=== PATIENT | male | born 1985 | race Caucasian/White ===

== ENCOUNTER 2019-09-13 12:41 | Emergency (ER) | payer OTHER ==
[~2019-09-13] VITALS: Ht 185.4 cm; Wt 85.7 kg
[~2019-09-13 12:41] MED LIST: Augmentin 875-1 EACH PO; CEPH500 PO; CLIN300 PO; CODGUAEL PO; CRUTCH4 USE; CYCL10 PO; HYDACE5 PO; IBUP800 PO; Norco 5-325 Ta1 EACH PO; RXHYDACE PO; TRAM50 PO
[2019-09-13] MEDS ORDERED: Zovirax800 MG PO (13:18)
[2019-09-13] MEDS ORDERED: Norco 5-325 Ta1 EACH PO (13:18)
[2019-09-13] MEDS ORDERED: IBUP600 PO (13:18)
== END 2019-09-13 13:28 | disposition home or self-care (01) ==
LOC: ER 12:41
DX: B02.9 Zoster without complications (principal); F17.210 Nicotine dependence, cigarettes, uncomplicated
CPT/HCPCS: 99282

== ENCOUNTER 2021-02-25 08:10 | Emergency (ER) | payer OTHER ==
[~2021-02-25] VITALS: Ht 182.9 cm; Wt 88.5 kg
[~2021-02-25 08:10] MED LIST changes: +IBUP600 PO; +Zovirax800 MG PO
== END 2021-02-25 10:00 | disposition home or self-care (01) ==
LOC: ER 08:10
DX: S01.01XA Laceration without foreign body of scalp, initial encounter (principal); F17.210 Nicotine dependence, cigarettes, uncomplicated; W20.8XXA Other cause of strike by thrown, projected or falling object, initial encounter
CPT/HCPCS: 12002; 99282-25

== ENCOUNTER 2022-05-29 03:01 | Emergency (ER) | payer OTHER ==
[~2022-05-29] VITALS: Ht 182.9 cm; Wt 86.2 kg
== END 2022-05-29 05:17 | disposition home or self-care (01) ==
LOC: ER 03:01
DX: S51.811A Laceration without foreign body of right forearm, initial encounter (principal); F17.210 Nicotine dependence, cigarettes, uncomplicated; W25.XXXA Contact with sharp glass, initial encounter
CPT/HCPCS: A9270